=== PATIENT | female | born 1960 | race Caucasian/White ===

== ENCOUNTER 2024-02-28 11:49 | Emergency (ER) | payer OTHER, SELFPAY ==
--- NOTE | 2024-02-28 12:01 | ERPHSYRPT ---
- History of Present Illness Time Seen by Provider: 02/28/24 12:00 Source: patient, family Exam Limitations: no limitations Physician History: This is a 63-year-old white female patient who lost her footing and fell onto her face prior to arrival. She did not lose consciousness. She arrives with a right side upper lip laceration. Her tetanus status is not up-to-date. Timing/Duration: today Quality: painful Severity: mild Location: face (Right side upper lip) Associated Symptoms: denies symptoms Allergies/Adverse Reactions: No Known Drug Allergies Allergy (Verified 02/28/24 12:08) Home Medications: Alendronate Sodium 70 mg [Fosamax 70 MG] 70 mg PO DAILY 02/28/24 [History] Calcium Carbonate/Vitamin D3 [Calcium 600 mg-Vit D3 5 Mcg Tb] 1 tab PO DAILY 02/28/24 [History] Tizanidine HCl 4 mg [Zanaflex 4 MG] 4 mg PO DAILY 02/28/24 [History] Tramadol HCl 50 mg [Ultram 50 mg] 50 mg PO DAILY 02/28/24 [History] Tramadol HCl [Tramadol HCl ER] 200 mg PO DAILY 02/28/24 [History] Travel Risk - International Travel Have you traveled outside of the country in past 3 weeks: No - Emerging Infectious Disease Are you exhibiting symptoms associated with any current EIDs: No - Review of Systems Constitutional: No Symptoms Eyes: No Symptoms Ears, Nose, & Throat: No Symptoms Respiratory: No Symptoms Cardiac: No Symptoms Abdominal/Gastrointestinal: No Symptoms Genitourinary Symptoms: No Symptoms Musculoskeletal: No Symptoms Skin: Other (Right side upper lip laceration) Neurological: No Symptoms Psychological: No Symptoms Endocrine: No Symptoms Hematologic/Lymphatic: No Symptoms Immunological/Allergic: No Symptoms All Other Systems: Reviewed and Negative - Past Medical History Pertinent Past Medical History: Yes - Past Surgical History Past Surgical History: Yes Significant Family History: no pertinent family hx - Nursing Vital Signs Nursing Vital Signs: Initial Vital Signs Temperature 97.8 F 02/28/24 12:02 Pulse Rate 78 02/28/24 12:02 Respiratory Rate 20 02/28/24 12:02 Blood Pressure 179/80 02/28/24 12:02 O2 Sat by Pulse Oximetry 97 02/28/24 12:02 Pain Scale Pain Intensity 2 - Physical Exam General Appearance: no apparent distress, alert Eye Exam: PERRL/EOMI, eyes nml inspection Ears, Nose, Throat Exam: normal ENT inspection, moist mucous membranes Neck Exam: normal inspection, non-tender, supple, full range of motion Respiratory Exam: airway intact, No chest tenderness, No respiratory distress Gastrointestinal/Abdomen Exam: No tenderness Pelvic Exam: not done Rectal Exam: not done Back Exam: normal inspection, normal range of motion, No CVA tenderness, No vertebral tenderness Extremity Exam: normal inspection, normal range of motion, pelvis stable Neurologic Exam: alert, oriented x 3, cooperative, 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 Right upper outer lip. 0.5 cm lip proper laceration and 1 cm skin laceration. Laceration is vertically oriented) SpO2 Interpretation: normal O2 Delivery: Room Air Procedures - Laceration/Wound Repair Right Upper Lip Time of Procedure: 12:50 Wound Location: Right, face (Upper) Wound Length (cm): 1.5 Wound's Depth, Shape: superficial, linear (Vertically) Wound Explored: There was a superficial laceration of the external lip to the right side. (The wound is clean. The wound was explored to the base in a bloodless field and no foreign body noted. There was no communication with the internal oral cavity mucosa.) Irrigated: Yes Hibiclens Prep: Yes Anesthesia: 1% Lidocaine Volume Anesthetic (ccs): 1.5 Wound Repaired With: sutures Suture Size/Type: 3-0, nylon (2 simple interrupted sutures external skin), vicryl (30 single stitch) Number of Sutures: 3 (1 external lip proper, to skin sutures) Layer Closure?: No - Course Nursing assessment & vital signs reviewed: Yes Ordered Tests: Medication Summary Discontinued Medications Generic Name Dose Route Start Last Admin Trade Name Freq PRN Reason Stop Dose Admin Diphtheria/Tetanus/Acell Pertussis 0.5 ml 02/28/24 12:56 02/28/24 13:01 Tdap --Diph,Pertuss(Acell),Tet Vac/Pf 0.5 Ml Vial IM 02/28/24 12:57 0.5 ml .ONCE ONE Administration Diphtheria/Tetanus/Acell Pertussis Confirm 02/28/24 13:00 Tdap --Diph,Pertuss(Acell),Tet Vac/Pf 0.5 Ml Vial Administered 02/28/24 13:01 Dose 0.5 ml IM .STK-MED ONE Lidocaine HCl Confirm 02/28/24 12:14 Lidocaine Hcl 1% 20 Ml Mdv 20 Ml Ml Administered 02/28/24 12:15 Dose 1 ml .ROUTE .STK-MED ONE - Progress Progress: improved Progress Note: 02/28/24 13:14 My medical decision making and the assignment of low complexity to this patient's medical issue today is based on review of the patient's past medical history, review the patient's medication list, review the patient drug allergy list, history present illness and physical findings on examination. The workup in this patient does not require any laboratory radiographic studies. Counseled pt/family regarding: diagnosis, need for follow-up Medical Desision Making - Independent Historian Additional History obtained from: Spouse - Diagnostic Testing Diagnostic test were ordered, analyzed, and reviewed by me: No - Risk of complications Minimal Risk: Minimal risk of morbidity - Departure Departure Disposition: Home Clinical Impression: Laceration of lip Condition: Stable Critical Care Time: No Referrals: COREY LEON [NON-STAFF PHY W/O PRIVILEGES] - Follow up/PCP as directed Additional Instructions: Keep the suture repair site dry for 24 hours. After 24 hours, may allow soapy water to flow over the repair site. Rinse the same way. May bladder use a physics department chair to dry the site. The external skin sutures may be removed in 5 to 7 days. The lip laceration dissolvable stitch will fall off on its own. Continue your other medication as prescribed. May apply a thin layer of antibiotic ointment of choice to the repair site once a day beginning after 24 hours. May use Tylenol and ibuprofen for pain control if there are no contraindications.
[2024-02-28 12:08] VITALS: RESP 20; TEMP 97.8
[2024-02-28] MEDS ORDERED: XYLOCAINE 1% HCL 20 ML MDV ONE (12:14)
[2024-02-28 12:48] VITALS: O2SAT 98
[2024-02-28] MEDS ORDERED: Adacel Vial IM ONE (13:00)
[2024-02-28] MEDS: Adacel Vial IM ONE (13:01)
[2024-02-28 13:12] VITALS: BP 149/74; PULSE 68
== END 2024-02-28 13:21 | disposition home or self-care (01) ==
LOC: ED 11:49
DX: S01.511A Laceration without foreign body of lip, initial encounter (principal); W19.XXXA Unspecified fall, initial encounter
CPT/HCPCS: 12011; 90471; 90715; 99283